=== PATIENT | female | born 1935 | race African-American/Black ===

== ENCOUNTER 2018-09-28 07:35 | Outpatient (CLI) | payer MEDICARE, OTHER ==
--- NOTE | 2018-09-28 11:24 | Fluoroscopy Report ---
MODIFIED BARIUM SWALLOW History: dysphagia. Findings: Video radiography was provided by the radiologist for speech therapy to assess the swallowing mechanism. 1 fluoroscopic image was captured. Impression: Successful modified barium swallow.
== END 2018-09-28 07:36 | disposition home or self-care (01) ==
LOC: PT 07:35
PROVIDERS: ATTEND Otolaryngology
DX: R13.12 Dysphagia, oropharyngeal phase (principal)
CPT/HCPCS: 74230

== ENCOUNTER 2018-09-28 10:00 | Outpatient (CLI) | payer MEDICARE, OTHER ==
--- NOTE | 2018-09-28 10:43 | XRay Report ---
ROUTINE CHEST, TWO VIEWS: HISTORY: Cough. The trachea, heart, mediastinal contour, lung otero and bony thorax are unremarkable. Moderate thoracic spondylosis is noted. IMPRESSION: No acute cardiopulmonary process identified.
== END 2018-09-28 10:01 | disposition home or self-care (01) ==
LOC: XRAY 10:00
PROVIDERS: ATTEND Otolaryngology
DX: R05 Cough (principal); M47.814 Spondylosis without myelopathy or radiculopathy, thoracic region
CPT/HCPCS: 71046